=== PATIENT | male | born 1985 | race Caucasian/White ===

== ENCOUNTER 2019-09-01 05:26 | Day surgery (SDC) | payer OTHER ==
[2019-08-29 14:22] VITALS: BMI 25.4
[2019-09-01 11:58] VITALS: TEMP 97.9
[2019-09-01 12:04] VITALS: BP 121/76; PULSE 80
--- NOTE | 2019-09-04 19:33 | PATH ---
Surgical Pathology Report Patient Name: ARCHANA MOTA [facility]. Rec. #: [id number] /Age/Gender: 1985 (Age: 34) / M Account: [id number] Location: [facility]-ENDOSCOPY Taken: 09/01/2019 Received: 09/01/2019 Reported: 09/04/2019 Physicians: Yung Jackson M.D. Specimen(s) Received A: CECUM B: PROXIMAL ASCENDING COLON C: DISTAL ASCENDINGCOLON D: PROXIMAL TRANSVERSE COLON E: DISTAL COLON F: DESCENDING COLON G: SIGMOID COLON H: RECTUM Clinical History Ulcerative colitis Postoperative diagnosis: Hemorrhoids Final Diagnosis A. CECUM, BIOPSY: COLONIC MUCOSA WITH MODERATE CHRONIC ACTIVE COLITIS INCLUDING ARCHITECTURAL DISTORTION, PATCHY ACUTE CRYPTITIS, INCREASED ACUTE AND CHRONIC INFLAMMATORY INFILTRATE WITHIN LAMINA PROPRIA, AND PROMINENT LYMPHOID AGGREGATES. B. PROXIMAL ASCENDING COLON, BIOPSY: COLONIC MUCOSA WITH MILD CHRONIC ACTIVE COLITIS INCLUDING ARCHITECTURAL DISTORTION, FOCAL ACUTE CRYPTITIS, INCREASED ACUTE AND CHRONIC INFLAMMATORY INFILTRATE WITHIN LAMINA PROPRIA, AND PROMINENT LYMPHOID AGGREGATES. C. DISTAL ASCENDING COLON, BIOPSY: COLONIC MUCOSA WITH MODERATE CHRONIC ACTIVE COLITIS INCLUDING ARCHITECTURAL DISTORTION, PATCHY ACUTE CRYPTITIS, MODERATELY INCREASED ACUTE AND CHRONIC INFLAMMATORY INFILTRATE WITHIN LAMINA PROPRIA, AND PROMINENT LYMPHOID AGGREGATES. D. PROXIMAL TRANSVERSE COLON, BIOPSY: COLONIC MUCOSA WITH MODERATE CHRONIC ACTIVE COLITIS INCLUDING ARCHITECTURAL DISTORTION, PATCHY ACUTE CRYPTITIS, MODERATELY INCREASED ACUTE AND CHRONIC INFLAMMATORY INFILTRATE WITHIN LAMINA PROPRIA, AND PROMINENT LYMPHOID AGGREGATES. E. DISTAL COLON, BIOPSY: COLONIC MUCOSA WITH ARCHITECTURAL DISTORTION, MILD TO MODERATELY INCREASED CHRONIC INFLAMMATORY INFILTRATE WITHIN LAMINA PROPRIA, AND PROMINENT LYMPHOID AGGREGATES. NO ACUTE INFLAMMATION IDENTIFIED. F. DESCENDING COLON, BIOPSY: COLONIC MUCOSA WITH ARCHITECTURAL DISTORTION, MILDLY INCREASED CHRONIC INFLAMMATORY INFILTRATE WITHIN LAMINA PROPRIA AND SMALL LYMPHOID AGGREGATES. NO ACUTE INFLAMMATION IDENTIFIED. G. SIGMOID COLON, BIOPSY: COLONIC MUCOSA WITH ARCHITECTURAL DISTORTION AND MILDLY INCREASED CHRONIC INFLAMMATORY INFILTRATE WITHIN LAMINA PROPRIA. NO ACUTE INFLAMMATION IDENTIFIED. H. RECTUM, BIOPSY: COLONIC MUCOSA WITH ARCHITECTURAL DISTORTION, MODERATELY INCREASED CHRONIC INFLAMMATORY INFILTRATE WITHIN LAMINA PROPRIA, AND PROMINENT LYMPHOID AGGREGATES. NO ACUTE INFLAMMATION IDENTIFIED. Comment: No granuloma or dysplasia identified. Overall findings are consistent with established history of ulcerative colitis with mild to moderate activity involving the cecum, ascending colon, and proximal transverse colon. Electronically Signed Skylar Ornelas M.D. Gross Description A. Received in formalin, labeled "cecum biopsy" are 4 chu, irregular portions of soft tissue ranging from 0.1-0.6 cm. in greatest dimension. The specimens are submitted in toto in one cassette. B. Received in formalin, labeled "proximal ascending colon biopsy" are 4 chu, irregular portions of soft tissue ranging from 0.1-0.2 cm. in greatest dimension. The specimens are submitted in toto in one cassette. C. Received in formalin, labeled "distal ascending colon biopsy" are 4 chu, irregular portions of soft tissue ranging from 0.1-0.2 cm. in greatest dimension. The specimens are submitted in toto in one cassette. D. Received in formalin, labeled "proximal transverse colon biopsy" are 4 chu, irregular portions of soft tissue ranging from 0.2-0.4 cm. in greatest dimension. The specimens are submitted in toto in one cassette. E. Received in formalin, labeled "distal transverse colon biopsy" are 4 chu, irregular portions of soft tissue ranging from 0.2-0.3 cm. in greatest dimension. The specimens are submitted in toto in one cassette. F. Received in formalin, labeled "descending colon biopsy" are 4 chu, irregular portions of soft tissue ranging from 0.2-0.3 cm. in greatest dimension. The specimens are submitted in toto in one cassette. G. Received in formalin, labeled "sigmoid colon biopsy" are 4 chu, irregular portions of soft tissue ranging from 0.1-0.2 cm. in greatest dimension. The specimens are submitted in toto in one cassette. H. Received in formalin, labeled "rectum biopsy" are 4 chu, irregular portions of soft tissue ranging from 0.1-0.2 cm. in greatest dimension. The specimens are submitted in toto in one cassette. 09/01/[address] [facility]09/01/2019
== END 2019-09-01 12:12 | disposition home or self-care (01) ==
LOC: JASU-ENDO 05:26
PROVIDERS: ATTEND Internal Medicine Gastroenterology
PROC: 0DBL8ZX Excision of Transverse Colon, Via Natural or Artificial Opening Endoscopic, Diagnostic (ICD-10-PCS; 2019-09-01)
PROC: 0DBN8ZX Excision of Sigmoid Colon, Via Natural or Artificial Opening Endoscopic, Diagnostic (ICD-10-PCS; 2019-09-01)
PROC: 0DBP8ZX Excision of Rectum, Via Natural or Artificial Opening Endoscopic, Diagnostic (ICD-10-PCS; 2019-09-01)
PROC: 0DBM8ZX Excision of Descending Colon, Via Natural or Artificial Opening Endoscopic, Diagnostic (ICD-10-PCS; 2019-09-01)
PROC: 0DBH8ZX Excision of Cecum, Via Natural or Artificial Opening Endoscopic, Diagnostic (ICD-10-PCS; 2019-09-01)
PROC: 0DBK8ZX Excision of Ascending Colon, Via Natural or Artificial Opening Endoscopic, Diagnostic (ICD-10-PCS; principal; 2019-09-01 10:30)
DX: K51.90 Ulcerative colitis, unspecified, without complications (principal); K64.8 Other hemorrhoids
CPT/HCPCS: 88305-TC; 88309-TC